=== PATIENT | female | born 1940 | race African-American/Black ===

== ENCOUNTER 2016-10-24 00:14 | Emergency (ER) | payer MEDICARE, OTHER ==
[~2016-10-24] VITALS: Ht 160 cm; Wt 81.6 kg
[~2016-10-24 00:14] MED LIST: AMLO10TA2; AMMO57LO; ATORVASTATIN CA80 MG; DESO15OI3; ENAL20TA PO; FLUT16SP; HYDR25TA9 PO; INSU100V SUBCUT; INSU100V8 SUBCUT; MECL12.52; OXYB5TAB7; WARF4TAB7; WARF5TAB7
[2016-10-24 01:58] LABS: BASO % 0 % (0-3); EOS % 2 % (0-3); HEMATOCRIT 31.7 % (36.0-47.0); HEMOGLOBIN 10.4 g/dL (12.0-15.5); LYMPH # 1.2 x10^3/uL (1.0-4.8); LYMPH % 11 % (24-48); MEAN CORPUSCULAR HEMOGLOBIN 29 pg (25-35); MEAN CORPUSCULAR HGB CONC 33 g/dL (31-37); MEAN CORPUSCULAR VOLUME 89 fL (79-100); MONO % 7 % (0-9); NEUT % 80 % (31-73); PLATELET COUNT 175 x10^3/uL (140-400); RED BLOOD COUNT 3.57 x10^6/uL (3.50-5.40); RED CELL DISTRIBUTION WIDTH 15.6 % (11.5-14.5); WHITE BLOOD COUNT 10.6 x10^3/uL (4.0-11.0)
[2016-10-24 02:00] VITALS: BP 168/72
[2016-10-24] MEDS ORDERED: IV NORMAL SALINE 1000ML BAG 1,000 ML IV ONE (02:00)
[2016-10-24 02:06] LABS: BILIRUBIN,URINE NEGATIVE (NEG); GLUCOSE,URINE >=1000 mg/dL (NEG); NITRITE,URINE NEGATIVE (NEG); PROTEIN,URINE NEGATIVE (NEG-TRACE); UROBILINOGEN,URINE 0.2 mg/dL (0.2 mg/dL)
[2016-10-24 02:10] LABS: CALCIUM 8.6 mg/dL (8.5-10.1); CREATININE 1.7 mg/dL (0.6-1.0); GFR 35.5; POTASSIUM 4.6 mmol/L (3.5-5.1)
[2016-10-24 02:14] LABS: BACTERIA,URINE FEW /HPF (0-FEW); RBC,URINE OCC /HPF (0-2); SQUAMOUS EPITHELIAL CELL,UR MOD /LPF
[2016-10-24 02:15] LABS: ALBUMIN/GLOBULIN RATIO 0.9 (1.0-1.7); TOTAL BILIRUBIN 0.5 mg/dL (0.2-1.0); TOTAL PROTEIN 6.4 g/dL (6.4-8.2)
--- NOTE | 2016-10-24 02:39 | PHYS DOC ---
Past Medical History Past Medical History: Diabetes-Type II, DVT, High Cholesterol, Hypertension, Seizure Past Surgical History: , Tubal ligation Alcohol Use: None Drug Use: None Adult General Chief Complaint Chief Complaint: WEAKNESS/GENERALIZED HPI HPI Patient is a 76 year old female who presents here today with generalized weakness and feeling tired to start this afternoon. Patient reports she feels weak all over. Patient denies any focal weakness. Patient denies any slurring of her speech. Patient denies any vertigo. Patient denies any fevers shakes chills nausea vomiting diarrhea dysuria frequency or urgency. Patient denies chest pain or shortness of breath. Patient reports she been tolerating by mouth' s well. Patient doesn't history of hypertension and diabetes reports that her diabetes has been poorly controlled secondary to poor diet. Patient is not allergic to medications had a and bilateral tubal ligation. Physical exam unremarkable. Patient's alert awake and oriented 3. She has a normal neurological exam. Patient has no focal deficits. Patient has a normal gait. Patient is an bleeding in the ER to the bathroom without any ataxia or difficulty emulating. Patient has no slurring or speech. Patient has no facial droop. Patient's heart was regular rate and rhythm. Lungs were clear. Abdomen is benign. This is a 76-year-old female who presents to the ER today secondary to generalized weakness. Patient's workup in the ER consisted of labs which were significant for an elevated blood sugar. Patient isn't 1000 of glucose in her urine and a blood sugar greater than 300. Patient's dizziness is likely secondary to dehydration and hyperglycemia. Patient was given a liter of normal saline solution in the ER and will be discharged home with dietary instructions. Patient's clinically and hemodynamically stable. No evidence of DKA. There is no further indication for inpatient or ER evaluation of this patient. Review of Systems Review of Systems Constitutional: Denies fever or chills [] Eyes: Denies change in visual acuity, redness, or eye pain [] HENT: Denies nasal congestion or sore throat [] All other review systems are negative except as documented in history of present illness portion. Current Medications Current Medications Current Medications Medications (Trade) Dose Ordered Sig/Agustin Start Time Stop Time Status Last Admin Dose Admin Sodium Chloride (Iv Sodium Chloride 0.9% 1000ml Bag) 1,000 ml @ 1,000 mls/hr 1X ONCE 3/5/17 02:00 10/24/16 02:59 10/24/16 02:00 1,000 MLS/HR Allergies Allergies Allergies Coded Allergies Type Severity Reaction Last Updated Verified No Known Drug Allergies 09/30/15 No Physical Exam Physical Exam Constitutional: Well developed, well nourished, no acute distress, non-toxic appearance. [] HENT: Normocephalic, atraumatic, bilateral external ears normal, oropharynx moist, no oral exudates, nose normal. [] Eyes: PERRLA, EOMI, conjunctiva normal, no discharge. [] Neck: Normal range of motion, no tenderness, supple, no stridor. [] Cardiovascular:Heart rate regular rhythm, Lungs & Thorax: Bilateral breath sounds clear to auscultation [] Abdomen: Bowel sounds normal, soft, no tenderness, no masses, no pulsatile masses. [] Skin: Warm, dry, no erythema, no rash. [] Back: No tenderness, no CVA tenderness. [] Extremities: No tenderness, no cyanosis, no clubbing, ROM intact, no edema. [] Neurologic: Alert and oriented X 3, normal motor function, normal sensory function, no focal deficits noted. [] Psychologic: Affect normal, judgement normal, mood normal. [] Current Patient Data Vital Signs Vital Signs Date Time Temp Pulse Resp B/P Pulse Ox O2 Delivery O2 Flow Rate FiO2 10/24/16 02:00 84 20 168/72 94 Room Air Lab Values Laboratory Tests Test 10/24/16 00:35 10/24/16 01:50 White Blood Count 10.6x10^3/uL (4.0-11.0) Red Blood Count 3.57x10^6/uL (3.50-5.40) Hemoglobin 10.4g/dL (12.0-15.5) L Hematocrit 31.7% (36.0-47.0) L Mean Corpuscular Volume 89fL (79-100) Mean Corpuscular Hemoglobin 29pg (25-35) Mean Corpuscular Hemoglobin Concent 33g/dL (31-37) Red Cell Distribution Width 15.6% (11.5-14.5) H Platelet Count 175x10^3/uL (140-400) Neutrophils (%) (Auto) 80% (31-73) H Lymphocytes (%) (Auto) 11% (24-48) L Monocytes (%) (Auto) 7% (0-9) Eosinophils (%) (Auto) 2% (0-3) Basophils (%) (Auto) 0% (0-3) Neutrophils # (Auto) 8.4x10^3uL (1.8-7.7) H Lymphocytes # (Auto) 1.2x10^3/uL (1.0-4.8) Monocytes # (Auto) 0.7x10^3/uL (0.0-1.1) Eosinophils # (Auto) 0.2x10^3/uL (0.0-0.7) Basophils # (Auto) 0.0x10^3/uL (0.0-0.2) Sodium Level 139mmol/L (136-145) Potassium Level 4.6mmol/L (3.5-5.1) Chloride Level 104mmol/L (98-107) Carbon Dioxide Level 25mmol/L (21-32) Anion Gap 10 (6-14) Blood Urea Nitrogen 39mg/dL (7-20) H Creatinine 1.7mg/dL (0.6-1.0) H Estimated GFR (Cockcroft-Gault) 35.5 BUN/Creatinine Ratio 23 (6-20) H Glucose Level 344mg/dL (70-99) H Calcium Level 8.6mg/dL (8.5-10.1) Total Bilirubin 0.5mg/dL (0.2-1.0) Aspartate Amino Transferase (AST) 41U/L (15-37) H Alanine Aminotransferase (ALT) 31U/L (14-59) Alkaline Phosphatase 100U/L (46-116) Troponin I Quantitative < 0.017ng/mL (0.000-0.055) Total Protein 6.4g/dL (6.4-8.2) Albumin 3.0g/dL (3.4-5.0) L Albumin/Globulin Ratio 0.9 (1.0-1.7) L Urine Collection Type Unknown Urine Color Yellow Urine Clarity Clear Urine pH 5.0 Urine Specific [place] 1.020 Urine Protein Negativemg/dL (NEG-TRACE) Urine Glucose (UA) >=1000mg/dL (NEG) Urine Ketones (Stick) Negativemg/dL (NEG) Urine Blood Trace (NEG) Urine Nitrite Negative (NEG) Urine Bilirubin Negative (NEG) Urine Urobilinogen Dipstick 0.2mg/dL (0.2 mg/dL) Urine Leukocyte Esterase Negative (NEG) Urine RBC Occ/HPF (0-2) Urine WBC 1-4/HPF (0-4) Urine Squamous Epithelial Cells Mod/LPF Urine Bacteria Few/HPF (0-FEW) Urine Mucus Slight/LPF Laboratory Tests 10/24/16 00:35 Laboratory Tests 10/24/16 00:35 EKG EKG [] Radiology/Procedures Radiology/Procedures [] Course & Med Decision Making Course & Med Decision Making Pertinent Labs and Imaging studies reviewed. (See chart for details) [] Dragon Disclaimer Dragon Disclaimer This electronic medical record was generated, in whole or in part, using a voice recognition dictation system. Departure Departure Impression: Primary Impression: Dizziness Additional Impression: Hyperglycemia Disposition: 01 HOME, SELF-CARE Condition: IMPROVED Referrals: ALBERTO SOMMERS (PCP) Patient Instructions: Hyperglycemia, Weakness Problem Qualifiers BEATRIS BELLO MD Oct 24, 2016 02:39
--- NOTE | 2016-10-24 08:09 | RAD ---
EXAM: CHEST 1 VIEW History: Weakness, shortness of breath Comparison: None TECHNIQUE: Single portable radiograph of the chest FINDINGS: The cardiac silhouette is unremarkable. The lungs are clear bilaterally. The costophrenic sulci are clear and well demarcated. IMPRESSION: No radiographic evidence of an acute cardiopulmonary process.
--- NOTE | 2016-10-24 09:54 | EKG ---
[facility] [address] [place] [address] Test Date: 2016-10-24 Test Time: 00:27:47 Pat Name: JOSE CALDERON Department: Room: Gender: F Youth Program Director: : 1940 Requested By: BEATRIS BELLO Order Number: [id number] Reading MD: Chaitanya Lee Measurements Intervals [place] Rate: 86 P: 49 MA: 156 QRS: -2 QRSD: 84 T: 55 QT: 354 QTc: 427 Interpretive Statements SINUS RHYTHM LEFTWARD AXIS OTHERWISE NORMAL ECG RI6.01 Unconfirmed report Compared to ECG 09/30/2015 19:29:53 No significant changes Electronically Signed On 10-25-2016 14:08:57 FIELD SERVICES ANALYST by Chaitanya Lee
== END 2016-10-24 02:50 | disposition home or self-care (01) ==
LOC: ER 00:14
DX: R42 Dizziness and giddiness (principal); E11.65 Type 2 diabetes mellitus with hyperglycemia; E78.00 Pure hypercholesterolemia, unspecified; I10 Essential (primary) hypertension
CPT/HCPCS: 36415; 71010; 80053; 81001; 82947; 84484; 85027; 93005; 99285; J7030

== ENCOUNTER 2017-03-07 20:07 | Emergency (ER) | payer MEDICARE, OTHER ==
[~2017-03-07] VITALS: Ht 160 cm; Wt 88.9 kg
--- NOTE | 2017-03-07 20:45 | ED.ADGEN ---
Past Medical History Past Medical History: Diabetes-Type II, DVT, High Cholesterol, Hypertension, Seizure Past Surgical History: , Tubal ligation Alcohol Use: None Drug Use: None Adult General Chief Complaint Chief Complaint: DENTAL PROBLEM HPI HPI Patient is a 76 year old woman, history of chronic anticoagulant use with Coumadin due to DVT, who last use anticoagulants on 01 March, of seizure disorder , hypertension, type 2 diabetes mellitus, who presents to the emergency department with complaint of persistent bleeding status post dental extraction. Patient was seen by Dr. Pittman of oral surgery this afternoon, at around 2:15 to 30, she had tooth #2 extracted. Patient states that she had a root canal performed "a while ago", and had persistent swelling and pain over this tooth, therefore was taken for a dental extraction today. No infection, states that she has been experiencing bleeding since the procedure occurred this afternoon. States it has been a persistent ooze. She states that by the time she thought it might be a problem the dental clinic was closed, so she has not spoken to the oral surgeon. Patient states she followed lightheaded with the bleeding earlier today, denies any chest pain or shortness breath, any nausea or vomiting , any weakness, numbness, tingling or any other relieving or locations, no other bruising. No fevers or chills. No other injuries or complaints. Patient states she was having pain at the site earlier been using ibuprofen, is denying any pain at this time. Review of Systems Review of Systems Constitutional: Denies fever or chills. [] Eyes: Denies change in visual acuity. [] HENT: Denies nasal congestion or sore throat. Bleeding from dental extraction site since about 2:30 this afternoon. Respiratory: Denies cough or shortness of breath. [] Cardiovascular: Denies chest pain or edema. [] GI: Denies abdominal pain, nausea, vomiting, bloody stools or diarrhea. [] : Denies dysuria. [] Musculoskeletal: Denies back pain or joint pain. [] Integument: Denies rash. [] Neurologic: Denies headache, focal weakness or sensory changes. [] Endocrine: Denies polyuria or polydipsia. [] Lymphatic: Denies swollen glands. [] Psychiatric: Denies depression or anxiety. [] Allergies Allergies Allergies Coded Allergies Type Severity Reaction Last Updated Verified No Known Drug Allergies 09/30/15 No Physical Exam Physical Exam Constitutional: Well developed, well nourished, no acute distress, non-toxic appearance. [] HENT: Normocephalic, atraumatic, bilateral external ears normal, oropharynx moist, no oral exudates, nose normal. Patient with sutures in place with small amount of bright red blood, and clot at gumline, where a dental extraction was performed. No active bleeding identified at this time, the surrounding area was gently irrigated with normal saline. Clot is in place. Eyes: PERRLA, EOMI, conjunctiva normal, no discharge. [] Neck: Normal range of motion, no tenderness, supple, no stridor. [] Cardiovascular:Heart rate regular rhythm, no murmur, S1, S2, no rubs or gallops. [] Lungs & Thorax: Bilateral breath sounds clear to auscultation , no wheezing, rhonchi, rales. No chest wall crepitus or tenderness. [] Abdomen: Bowel sounds normal, soft, no tenderness, no masses, no pulsatile masses. [] Skin: Warm, dry, no erythema, no rash. [] Back: No tenderness, no CVA tenderness. [] Extremities: No tenderness, no cyanosis, no clubbing, ROM intact, no edema. [] Neurologic: Alert and oriented X 3, normal motor function, normal sensory function, no focal deficits noted. [] Psychologic: Affect normal, judgement normal, mood normal. [] Current Patient Data Vital Signs Vital Signs Date Time Temp Pulse Resp B/P (MAP) Pulse Ox O2 Delivery O2 Flow Rate FiO2 03/07/17 21:17 86 149/70 (96) 95 Room Air 03/07/17 20:15 98.5 18 98.5 Lab Values Laboratory Tests Test 03/07/17 20:30 03/07/17 20:45 Prothrombin Time 14.2 SEC (11.7-14.0) H Prothrombin Time INR 1.2 (0.8-1.1) H POC Hemoglobin 12.6 g/dL (12-15) POC Hematocrit 37 % (36-40) POC Sodium 139 mmol/L (135-145) POC Potassium 4.3 mmol/L (3.5-5.0) POC Chloride 106 mmol/L (98-110) POC Total CO2 23 mmol/L (23-32) Anion Gap 16 mmol/L (6-14) H POC Blood Urea Nitrogen 44 mg/dL (8-26) H POC Creatinine 1.7 mg/dL (0.5-1.4) H Glucose Level 185 mg/dL (70-99) H POC Ionized Calcium ([place]) 1.13 mmol/L (1.13-1.32) Laboratory Tests 03/07/17 20:45 EKG EKG Not indicated. [] Radiology/Procedures Radiology/Procedures Not indicated. [] Course & Med Decision Making Course & Med Decision Making Pertinent Labs and Imaging studies reviewed. (See chart for details) Patient states that she was "spitting up big, thick clots". Noted to be hypertensive, states she did forget to take her blood pressure medication before coming in but has at home. No active bleeding noted at this time. Patient does have large amounts of clot in the area, area surrounding was gently irrigated, to a [place] of the surrounding tissues, there is no active bleeding or other concerning findings, sutures with overlying clot are in place. As patient has had persistent bleeding, noted to be mildly tachycardic with a heart rate between 90s to low 100s, we will check laboratory studies including hemoglobin, basic renal function, and INR. Patient is agreeable this plan. Resting comfortably, with a teabag pressed between her upper and lower jaw on the right. Left in place 15 minutes, noted to have some small amount of clot on the teabag, but no active bleeding as stated. Patient states that she feels the bleeding has fully stopped and is no longer experiencing the symptoms that brought her to the ED. She remains comfortable. Blood pressure is improved , heart rate is in the 80s to mid 90s. Oxygen saturation is in the upper 90s on room air, respiratory rate is 18-20 and unlabored. Patient observed in the ED for an additional 30 minutes after the teabag to removed, with no further bleeding. She remains comfortable, we reviewed the post extraction instructions and care as discussed with her oral surgeon, and concerning symptoms that prompt return to the ED. Patient's INR is 1.2 at this time, as she has been off anticoagulation for the past 6 days, we restarted by her primary care provider. as stated, does have her blood pressure medication home, she will take upon returning home. She is not exhibiting any other concerning symptoms or concerns in the ED at this time. I did discuss concerning symptoms that prompt return to the ED with patient and son at bedside. Patient and son voiced understanding and agreement. Patient discharged home in stable condition with plan as above. Dragon Disclaimer Dragon Disclaimer This electronic medical record was generated, in whole or in part, using a voice recognition dictation system. Departure Impression: Primary Impression: Gums, bleeding Disposition: 01 HOME, SELF-CARE Condition: IMPROVED BAUDILIO CLARK DO Mar 07, 2017 20:45
[2017-03-07 20:48] LABS: POTASSIUM ISTAT 4.3 mmol/L (3.5-5.0)
[2017-03-07 20:50] LABS: INR 1.2 (0.8-1.1); PROTHROMBIN TIME PATIENT 14.2 SEC (11.7-14.0)
[2017-03-07 21:47] VITALS: BP 160/74
== END 2017-03-07 22:13 | disposition home or self-care (01) ==
LOC: ER 20:07
DX: R58 Hemorrhage, not elsewhere classified (principal); Z98.818 Other dental procedure status; E11.9 Type 2 diabetes mellitus without complications; E78.00 Pure hypercholesterolemia, unspecified; G40.909 Epilepsy, unspecified, not intractable, without status epilepticus; I10 Essential (primary) hypertension; Z86.718 Personal history of other venous thrombosis and embolism; Z79.01 Long term (current) use of anticoagulants
CPT/HCPCS: 36415; 80047; 85610; 99284

== ENCOUNTER 2018-03-16 22:13 | Emergency (ER) | payer MEDICARE ==
[2018-03-16] MEDS: FLUORESCEIN OPHTH TEST STRIP. OD (23:45)
[2018-03-16] MEDS: TETRACAINE 0.5% OPHTH SOLUTION 4ML BOTTLE. OD (23:45)
[2018-03-17] MEDS: ERYTHROMYCIN 0.5% OPHTH OINTMENT 1GM TUBE. OD (00:15)
== END 2018-03-17 00:30 | disposition home or self-care (01) ==
LOC: ER 03-17 00:30
DX: H10.31 Unspecified acute conjunctivitis, right eye (principal); E11.9 Type 2 diabetes mellitus without complications; I10 Essential (primary) hypertension
CPT/HCPCS: 99283

== ENCOUNTER 2019-07-29 19:42 | Emergency (ER) | payer MEDICARE ==
[~2019-07-29] VITALS: Ht 165.1 cm; Wt 108.9 kg
[~2019-07-29 19:42] MED LIST changes: +ACET500T68 PO; -AMLO10TA2; +AMLO10TA8; +ERYT1OIN6 OP; +HYDR-2145 PO; -HYDR25TA9 PO; -INSU100V SUBCUT; +INSU100V6 SUBCUT; +INSU100V8 SQ; +OXYB5TAB10; -OXYB5TAB7; +WARF-31; +WARF4TAB64; -WARF4TAB7; -WARF5TAB7
[2019-07-29 20:16] LABS: CALCIUM 9.1 mg/dL (8.5-10.1); CREATININE 2.3 mg/dL (0.6-1.0); GFR 24.9; POTASSIUM 4.8 mmol/L (3.5-5.1)
[2019-07-29 20:17] LABS: PROTHROMBIN TIME PATIENT 26.1 SEC (11.7-14.0)
[2019-07-29 20:22] LABS: ALBUMIN 2.6 g/dL (3.4-5.0); ALBUMIN/GLOBULIN RATIO 0.5 (1.0-1.7); TOTAL BILIRUBIN 0.4 mg/dL (0.2-1.0); TOTAL PROTEIN 8.1 g/dL (6.4-8.2)
--- NOTE | 2019-07-29 20:53 | RAD ---
Exam: CT head and cervical spine without contrast INDICATION: Head injury on Coumadin TECHNIQUE: Sequential axial images through the head and cervical spine were obtained without the administration of IV contrast. Comparisons: 07/09/2019 FINDINGS: Head: No focal parenchymal lesion or hemorrhage is identified. There is no midline shift or sulcal effacement. No acute vascular territory infarction is identified. Luciano-white distinction is preserved. The ventricular system is within normal limits without compression hydrocephalus. The basal cisterns are well maintained. The visualized portions of the paranasal sinuses and mastoid air cells are well-pneumatized. No acute fractures. Cervical spine: Vertebral body heights are well-maintained. There is straightening of the cervical spine which may be positional. Fracture to the cervical spine is not identified. Multilevel spondylotic change in cervical spine with degenerative disc disease greatest at C4-C5 and C5-C6. Mild bilateral facet arthropathy is noted in the cervical spine. There is a hypoattenuating cystic nodule at the inferior pole of the right thyroid gland measuring up to 5.5 cm. IMPRESSION: 1. No acute intracranial abnormality. 2. Negative CT C-spine for acute traumatic injury. Exposure: One or more of the following in the visualized dose reduction techniques were utilized for this examination: 1. Automated exposure control 2. Adjustment of the MA and/or KV according to patient size Use of iterative of reconstructive technique Electronically signed by: Fiona Toribio MD (07/29/2019 8:50 PM) [facility]
[2019-07-29 21:04] LABS: BASO % 0 % (0-3); EOS # 0.4 x10^3/uL (0.0-0.7); EOS % 3 % (0-3); HEMATOCRIT 22.6 % (36.0-47.0); HEMOGLOBIN 7.2 g/dL (12.0-15.5); LYMPH # 0.9 x10^3/uL (1.0-4.8); LYMPH % 7 % (24-48); MEAN CORPUSCULAR HEMOGLOBIN 25 pg (25-35); MEAN CORPUSCULAR HGB CONC 32 g/dL (31-37); MEAN CORPUSCULAR VOLUME 78 fL (79-100); MONO # 0.7 x10^3/uL (0.0-1.1); MONO % 6 % (0-9); NEUT # 10.4 x10^3/uL (1.8-7.7); NEUT % 84 % (31-73); PLATELET COUNT 312 x10^3/uL (140-400); RED CELL DISTRIBUTION WIDTH 20.6 % (11.5-14.5); WHITE BLOOD COUNT 12.5 x10^3/uL (4.0-11.0)
[2019-07-29 22:02] LABS: PLT ESTIMATE ADEQUATE (ADEQUATE)
[2019-07-29 22:03] LABS: ANISOCYTOSIS MOD; HYPOCHROMIA SLIGHT; MICROCYTOSIS SLIGHT; OVALOCYTES FEW; POIKILOCYTOSIS SLIGHT; SCHISTOCYTES FEW
--- NOTE | 2019-07-29 22:51 | PHYS DOC ---
Past Medical History Past Medical History: Diabetes-Type I Past Surgical History: No Surgical History Alcohol Use: None Drug Use: None Adult General Chief Complaint Chief Complaint: MECHANICAL FALL HPI HPI Patient is a 78 year old wheelchair bound AA female who presents from accidental fall from wheelchair. Patient fell backwards striking her head and arm. X-rays were performed that facility who are reported to be negative. Is no reported loss of consciousness. Patient denies headache, neck pain and dizziness. Patient is currently on Coumadin. No other acute symptoms or complaints.] Review of Systems Review of Systems ROS as per HPI All other systems were reviewed and found to be within normal limits, except as documented in this note. Allergies Allergies Allergies Coded Allergies Type Severity Reaction Last Updated Verified amitriptyline Allergy Intermediate 07/09/19 Yes sertraline Allergy Intermediate 07/09/19 Yes Physical Exam Physical Exam Constitutional: Well developed, well nourished, no acute distress, non-toxic appearance. [] HENT: Normocephalic, atraumatic, bilateral external ears normal, oropharynx moist, nose normal. [] Eyes: PERRLA, EOMI, conjunctiva normal. [] Neck: Normal range of motion, no tenderness. [] Cardiovascular:Heart rate regular rhythm, no murmur [] Lungs & Thorax: Bilateral breath sounds clear to auscultation [] Abdomen: Bowel sounds normal, soft, no tenderness. [] Skin: Warm, dry. [] Back: No tenderness, no CVA tenderness. [] Extremities: No swelling or deformity. [] Neurologic: Alert and oriented, normal motor function, normal sensory function, no focal deficits noted. [] Psychologic: Affect normal, judgement normal, mood normal. [] Current Patient Data Lab Values Laboratory Tests Test 07/29/19 20:00 07/29/19 20:55 Prothrombin Time 26.1 SEC (11.7-14.0) H Prothrombin Time INR 2.4 (0.8-1.1) H Sodium Level 135 mmol/L (136-145) L Potassium Level 4.8 mmol/L (3.5-5.1) Chloride Level 102 mmol/L (98-107) Carbon Dioxide Level 23 mmol/L (21-32) Anion Gap 10 (6-14) Blood Urea Nitrogen 78 mg/dL (7-20) H Creatinine 2.3 mg/dL (0.6-1.0) H Estimated GFR (Cockcroft-Gault) 24.9 BUN/Creatinine Ratio 34 (6-20) H Glucose Level 192 mg/dL (70-99) H Calcium Level 9.1 mg/dL (8.5-10.1) Total Bilirubin 0.4 mg/dL (0.2-1.0) Aspartate Amino Transferase (AST) 13 U/L (15-37) L Alanine Aminotransferase (ALT) 17 U/L (14-59) Alkaline Phosphatase 88 U/L (46-116) Total Protein 8.1 g/dL (6.4-8.2) Albumin 2.6 g/dL (3.4-5.0) L Albumin/Globulin Ratio 0.5 (1.0-1.7) L White Blood Count 12.5 x10^3/uL (4.0-11.0) H Red Blood Count 2.90 x10^6/uL (3.50-5.40) L Hemoglobin 7.2 g/dL (12.0-15.5) L Hematocrit 22.6 % (36.0-47.0) L Mean Corpuscular Volume 78 fL (79-100) L Mean Corpuscular Hemoglobin 25 pg (25-35) Mean Corpuscular Hemoglobin Concent 32 g/dL (31-37) Red Cell Distribution Width 20.6 % (11.5-14.5) H Platelet Count 312 x10^3/uL (140-400) Neutrophils (%) (Auto) 84 % (31-73) H Lymphocytes (%) (Auto) 7 % (24-48) L Monocytes (%) (Auto) 6 % (0-9) Eosinophils (%) (Auto) 3 % (0-3) Basophils (%) (Auto) 0 % (0-3) Neutrophils # (Auto) 10.4 x10^3/uL (1.8-7.7) H Lymphocytes # (Auto) 0.9 x10^3/uL (1.0-4.8) L Monocytes # (Auto) 0.7 x10^3/uL (0.0-1.1) Eosinophils # (Auto) 0.4 x10^3/uL (0.0-0.7) Basophils # (Auto) 0.0 x10^3/uL (0.0-0.2) Platelet Estimate Adequate (ADEQUATE) Hypochromasia Slight Poikilocytosis Slight Anisocytosis Mod Microcytosis Slight Ovalocytes Few Schistocytes Few Laboratory Tests 07/29/19 20:55 Laboratory Tests 07/29/19 20:00 EKG EKG ] Radiology/Procedures Radiology/Procedures [CT head/cervical spine: No acute findings per radiology report. Course & Med Decision Making Course & Med Decision Making Pertinent Labs and Imaging studies reviewed. (See chart for details) [No acute findings on CT imaging. Previous chronic lab abnormalities. INR 2.4. Will discharge with close follow-up with [facility] attending with neuro checks.] Dragon Disclaimer Dragon Disclaimer This electronic medical record was generated, in whole or in part, using a voice recognition dictation system. Departure Departure Impression: Primary Impression: Minor head injury Additional Impressions: Anemia Chronic renal insufficiency Disposition: HOME, SELF-CARE Condition: STABLE Referrals: ALBERTO SOMMERS (PCP) Patient Instructions: Head Injury, Adult, [id number] Additional Instructions: Imaging and lab were checked. Patient's INR is 2.4. CT head and cervical spine do not show acute injury or hemorrhage. Please perform neuro checks every for the next 24 hours. Schedule follow-up appointment with PCP in 1-2 days to review most recent labs. Problem Qualifiers ANETA CEJA DO Jul 29, 2019 22:51
[2019-07-29 23:29] VITALS: BP 167/68
--- NOTE | 2019-07-30 06:49 | EKG ---
[facility] [address] [place] [address] Test Date: 2019-07-29 Test Time: 19:49:54 Pat Name: JOSE CALDERON Department: Room: Gender: F Director Of Marketing And Promotions: [place] : 1940 Requested By: ANETA CEJA Order Number: [id number] Reading MD: Billy Perea MD Measurements Intervals [place] Rate: 99 P: 66 MN: 120 QRS: 0 QRSD: 86 T: 78 QT: 336 QTc: 436 Interpretive Statements SINUS RHYTHM NON-SPECIFIC ST/T CHANGES Electronically Signed On 08-01-2019 11:20:07 [employer] B[employer] COLLECTION CLERK by Billy Perea MD
== END 2019-07-29 23:50 | disposition home or self-care (01) ==
LOC: ER 19:42
DX: S09.90XA Unspecified injury of head, initial encounter (principal); E10.22 Type 1 diabetes mellitus with diabetic chronic kidney disease; N18.9 Chronic kidney disease, unspecified; R51 Headache; Z79.01 Long term (current) use of anticoagulants; Z88.8 Allergy status to other drugs, medicaments and biological substances; W05.0XXA Fall from non-moving wheelchair, initial encounter; Y93.89 Activity, other specified; Y92.89 Other specified places as the place of occurrence of the external cause; Y99.8 Other external cause status
CPT/HCPCS: 36415; 70450; 72125; 80053; 85025; 85610; 93005; 99285-25